=== PATIENT | male | born 1940 | race Caucasian/White ===

== ENCOUNTER 2025-01-16 12:47 | Emergency (ER) | payer MEDICARE | END 2025-01-16 15:09 | disposition home or self-care (01) | LOC: JP.ED 12:47 | DX: R21 Rash and other nonspecific skin eruption (principal); I10 Essential (primary) hypertension; E78.00 Pure hypercholesterolemia, unspecified; Z79.899 Other long term (current) drug therapy; Z79.84 Long term (current) use of oral hypoglycemic drugs | CPT/HCPCS: 99282 ==